=== PATIENT | male | born 2005 | race African-American/Black ===

== ENCOUNTER 2023-08-03 15:49 | Emergency (ER) | payer SELFPAY ==
[~2023-08-03 15:49] MED LIST: Iopamidol 370 76% 100 ML VIAL ONE
[2023-08-03] MEDS ORDERED: Mag-Al Plus 1200 MG/1200 MG/120 MG/30 ML UDCUP ONE ×2 (16:16→16:23)
[2023-08-03] MEDS ORDERED: Morphine 4 MG/ML VIAL ONE (16:22)
[2023-08-03] MEDS ORDERED: Lidocaine Viscous Sol 2% 15 ml UD Cup ONE (16:23)
[2023-08-03] MEDS ORDERED: Ondansetron PF 4 MG/2 ML Vial ONE (16:23)
[2023-08-03] MEDS ORDERED: Sodium Chloride 0.9% 1,000 ML ONE (16:23)
[2023-08-03 17:02] LABS: ALT (SGPT) 31 U/L (8-55); AST (SGOT) 34 U/L (5-34); Albumin 4.5 g/dL (3.5-5.0); Alkaline Phosphatase 72 U/L (50-130); Anion Gap 16 mmol/L (10-20); BUN (Urea Nitrogen) 11 mg/dL (8.9-20.6); Bilirubin, Total 0.3 mg/dL (0.2-1.2); Calc. Creatinine Clearance 0 mL/min (70-130); Calcium 9.5 mg/dL (7.8-10.44); Carbon Dioxide 24 mmol/L (22-29); Chloride 106 mmol/L (98-107); Eosinophils 2 % (0-10); Estimated GFR 85; Globulin 2.8 g/dL (2.4-3.5); Glucose 96 mg/dL (70-105); Hematocrit 45.4 % (42.0-52.0); Hemoglobin 15.2 g/dL (14.0-18.0); Lipase 59 U/L (8-78); Lymphocytes 18 % (28-48); MDiff Complete? YES; Mean Corpuscular HGB CONC 33.4 g/dL (32.0-36.0); Mean Corpuscular Hemoglobin 26.8 pg (25.0-35.0); Mean Corpuscular Volume 80.1 fl (78.0-98.0); Mean Platelet Volume 8.9 fL (7.4-10.4); Monocytes 2 % (0-4); Neutrophil 36 % (31-61); Platelet Adequacy Comment Appears Adequate; Platelet Count 239 10x3/uL (130-400); Potassium 4.1 mmol/L (3.5-5.1); Protein, Total 7.3 g/dL (6.0-8.3); RBC Distribution Width 12.8 % (11.5-14.5); Reactive Lymphocytes 42 % (0-10); Red Blood Cell (RBC) Count 5.67 mill/uL (4.00-5.20); Reflex for Review?? NO; Sodium 142 mmol/L (136-145); White Blood Cell (WBC) Count 5.9 10x3/uL (4.8-10.8)
[2023-08-03 18:59] LABS: Bilirubin Negative (Negative); Blood, Urine Negative (Negative); Clarity Clear (Clear); Glucose, Urine (Dipstick) Negative (Negative); Ketone, Urine Negative (Negative); Leukocyte Negative (Negative); Nitrite Negative (Negative); Protein, Urine (Dipstick) Negative (Neg-Trace); Urobilinogen 0.2 mg/dL (Less than 2)
[2023-08-03 19:07] LABS: Amphetamine Not Detected (NotDetected); Barbiturates Screen Not Detected (NotDetected); Benzodiazepine Screen Not Detected (NotDetected); Cocaine Metabolite Screen Not Detected (NotDetected); Methadone Not Detected (NotDetected); Methamphetamine Not Detected (NotDetected); Opiate Screen Detected (NotDetected); Oxycodone Screen Not Detected (NotDetected); Phencyclidine (PCP) Not Detected (NotDetected); THC/Cannabinoid Screen Not Detected (NotDetected); Tricyclic Screen Not Detected (NotDetected)
[2023-08-03 19:09] LABS: Bacteria/HPF Rare-Few HPF (None Seen); CAUTI Indications for Culture Dysuria,urgency,freq; RBC/HPF None Seen HPF (0-3); Squamous Epithelial 0-3 HPF (0-3); Urine Culture Reflex No No; WBC/HPF None Seen HPF (0-3)
== END 2023-08-03 19:03 | disposition home or self-care (01) ==
LOC: MADERS 15:49
DX: K59.00 Constipation, unspecified (principal); F17.210 Nicotine dependence, cigarettes, uncomplicated
CPT/HCPCS: 74177; 80053; 80306; 81001; 83690; 85025; 96374; 96375; J2270; J2405; J7050; Q9967